=== PATIENT | male | born 1980 | race Caucasian/White ===

== ENCOUNTER 2018-12-15 13:06 | Emergency (ER) | payer MEDICAID ==
[~2018-12-15] VITALS: Ht 177.8 cm; Wt 97.7 kg
[2018-12-15 13:17] VITALS: Ht 177.8 cm; Wt 97.7 kg
[2018-12-15 13:46] LABS: BASOPHILS 0.2 % (0-2); EOSINOPHILS 0.2 % (0-7); HEMATOCRIT 42.3 % (42.0-54.0); HEMOGLOBIN 15.3 g/dL (13.5-17.5); IMMATURE GRANULOCYTES 0.4 % (0-5); LYMPHOCYTES 27.9 % (15-50); MCH 30.7 pg (26.0-34.0); MCHC 36.2 g/dL (31.0-37.0); MCV 84.8 fL (80.0-100.0); MEAN PLATELET VOLUME 11.4 fL (7.4-10.4); MONOCYTES 7.6 % (2-11); NEUTROPHILS 63.7 % (40-80); PLATELET COUNT 224 10x3/uL (130-400); RBC 4.99 10x6/uL (4.20-6.10); RDW 12.7 % (11.5-14.5); WBC 9.8 10x3/uL (4.8-10.8)
[2018-12-15 13:58] LABS: ALBUMIN 4.4 g/dL (3.4-5.0); ALKALINE PHOSPHATASE 55 U/L (46-116); ALT (SGPT) 42 U/L (10-68); BILIRUBIN - TOTAL 0.65 mg/dL (0.2-1.3); CALC OSMOLALITY 283 mosm/kg (275-300); CALCIUM 9.5 mg/dL (8.5-10.1); CARBON DIOXIDE 23.8 mmol/L (21.0-32.0); CHLORIDE - SERUM 103 mmol/L (98-107); CREATININE - SERUM 0.9 mg/dL (0.6-1.3); GLUCOSE 121 mg/dL (74-106); MAGNESIUM - SERUM 2.1 mg/dL (1.8-2.4); POTASSIUM - SERUM 4.1 mmol/L (3.5-5.1); PROTEIN - SERUM 8.1 g/dL (6.4-8.2); SODIUM 140 mmol/L (136-145); UREA NITROGEN 25 mg/dL (7-18); eGFR NON AFRICAN AMERICAN > 90 mL/min (90-120)
[2018-12-15 14:13] LABS: APPEARANCE CLEAR (CLEAR); BILIRUBIN NEGATIVE (NEGATIVE); COLOR YELLOW (YELLOW); GLUCOSE NEGATIVE (NEGATIVE); KETONE SMALL mg/dL (NEGATIVE); NITRITE NEGATIVE (NEGATIVE); PROTEIN NEGATIVE (NEGATIVE); SPECIFIC GRAVITY 1.015 (1.005-1.020)
[2018-12-15 14:30] LABS: UDS - AMPHET NEGATIVE QUAL (NEGATIVE); UDS - BARB NEGATIVE QUAL (NEGATIVE); UDS - BENZO NEGATIVE QUAL (NEGATIVE); UDS - COCAINE NEGATIVE QUAL (NEGATIVE); UDS - OPIATE NEGATIVE QUAL (NEGATIVE); UDS - PCP NEGATIVE QUAL (NEGATIVE); UDS - THC NEGATIVE QUAL (NEGATIVE)
[2018-12-15 16:16] VITALS: BP 106/59
[2018-12-15] MEDS ORDERED: LIBRIUM25 MG PO (16:19)
== END 2018-12-15 16:47 | disposition home or self-care (01) ==
LOC: D.ER 13:06
PROVIDERS: Family Medicine
DX: R56.9 Unspecified convulsions (principal)